=== PATIENT | male | born 1970 | race Caucasian/White ===

== ENCOUNTER 2016-11-28 12:57 | Outpatient (CLI) | payer BC | END 2016-11-28 20:00 | disposition home or self-care (01) | LOC: SRD 12:57 | PROVIDERS: ATTEND Internal Medicine | DX: M19.072 Primary osteoarthritis, left ankle and foot (principal); M77.32 Calcaneal spur, left foot ==

== ENCOUNTER 2022-11-20 16:14 | Emergency (ER) | payer BC ==
[~2022-11-20] VITALS: Ht 190.5 cm; Wt 149.7 kg
[2022-11-20 16:15] VITALS: BP_SYST 126
[2022-11-20] MEDS ORDERED: KETOROLAC TROMETHAMINE 30 MG VIAL IM ONE (17:15)
[2022-11-20] MEDS ORDERED: COLCHICINE 0.6 MG TABLET PO ONE (17:15)
[2022-11-20] MEDS ORDERED: DICL50TA9 PO (17:35)
[2022-11-20 18:20] VITALS: BP_SYST 126
== END 2022-11-20 18:20 | disposition home or self-care (01) ==
LOC: SED 16:14
DX: M10.062 Idiopathic gout, left knee (principal); I10 Essential (primary) hypertension; Z79.899 Other long term (current) drug therapy
CPT/HCPCS: 99283; 96372; J1885